=== PATIENT | female | born 1970 | race Caucasian/White ===

== ENCOUNTER 2022-09-19 09:17 | Emergency (ER) | payer OTHER, SELFPAY ==
[2022-09-19 09:20] VITALS: BP 179/86; PULSE 78; RESP 16; TEMP 37; O2SAT 100
[2022-09-19] MEDS: OXYMETAZOLINE HCL 0.05% NAS 15 ML BTL (*BKC) 2 SPRAY NASAL (09:53)
--- NOTE | 2022-09-19 09:55 | ED.GENADULT ---
HPI - General Adult General Chief complaint: Epistaxis Stated complaint: NOSEBLEED Time Seen by Provider: 09/19/22 09:39 History of Present Illness HPI narrative: Kesha Peoples is a 52 y/o female who presents with reports of having a nose bleed on Sunday that she was able to stop. It returned yesterday but she got it under control and then she got up today and it started to bleed again and could not get it to stop. She denies having these issues before. She is not on any blood thinners but reports she takes a lot of Excedrin. Bleeding is controlled with the pressure being held, let go to evaluate and pt is noted to have recurrent left nare bleeding. Related Data Allergies Allergy/AdvReac Type Severity Reaction Status Date / Time codeine AdvReac Severe NAUSEA Verified 09/19/22 09:50 Review of Systems Review of Systems: CONSTITUTIONAL: Denies fever, chills, or sweats. EYES: Denies visual changes, redness, or discharge. ENT: Denies rhinorrhea, congestion, sore throat, or otalgia- complains of nose bleed from left nostril that has been off and on since 3 days CARDIOVASCULAR: Denies chest pain, palpitations, or edema. RESPIRATORY: Denies cough or dyspnea. GASTROINTESTINAL: Denies abdominal pain, nausea, vomiting, or diarrhea. GENITOURINARY: Denies dysuria or hematuria. SKIN: Denies rash or itching. MUSCULOSKELETAL: Denies back pain, joint pain, or myalgia. NEUROLOGIC: Denies headache, numbness, dizziness, or weakness. PSYCHIATRIC: Denies anxiety or depression. PMFSH Family History Family History Other Diabetes mellitus Family history of arthritis Family history of malignant neoplasm Hypertension Social History Social History Alcohol intake: current Exam Narrative: GENERAL: Well-appearing, well-nourished, and in no acute distress. HEAD: Normocephalic, atraumatic. EYES: PERRLA and EOMI. ENT: epistaxis to the left nostril, Mucous membranes moist. Oropharynx without tonsillar hypertrophy exudate or other lesions. NECK: Supple. No adenopathy or masses. No carotid bruits or JVD CHEST: Clear to auscultation. No respiratory distress. No wheezes rales or rhonchi HEART: Regular rate and rhythm. No murmur heard. Normal peripheral pulses. ABDOMEN: Soft, nontender, nondistended, normal active bowel sounds. EXTREMITIES: Normal range of motion. No edema. SKIN: Warm, dry, no rash. NEURO: No focal deficits. Alert and oriented x3. PSYCH: Normal mood and affect. Course Vital Signs Vital signs: Vital Signs Temperature 37.0 C 09/19/22 09:20 Pulse Rate 78 09/19/22 09:20 Respiratory Rate 16 09/19/22 09:20 Blood Pressure 179/86 H 09/19/22 09:20 Pulse Oximetry 100 09/19/22 09:20 Temperature 37.0 C 09/19/22 09:20 Pulse Rate 78 09/19/22 09:20 Respiratory Rate 16 09/19/22 11:57 Blood Pressure 128/77 09/19/22 11:57 Pulse Oximetry 98 09/19/22 11:57 vitals reviewed by me. Medical Decision Making MDM Narrative Medical decision making narrative: Bleeding stopped with pressure in room, immediately rebleeds when tissue and pressure is lifted off of nose. Afrin nose spray in both nostrils placed and pressure being held Bleeding has stopped plan to check CBC/ BMP/ Pt INR and observe her for a while longer to make sure bleeding does not restart. Discussed this plan with patient and she is agreeable. After Afrin pt has not had any more bleeding for 2 hours. Plan to d/c home with the use of Afrin the next 3 days with follow up with her PCP and ENT Dr. Corrales Differential Diagnosis Differential Diagnosis: concern for: Anemia/ Uncontrolled Epistaxis /coagulopathy issue/ Vital Signs Vital Signs: Vital Signs Temperature 37.0 C 09/19/22 09:20 Pulse Rate 78 09/19/22 09:20 Respiratory Rate 16 09/19/22 09:20 Blood Pressure 179/86 H 09/19/22 09:20 Pulse O
[2022-09-19 10:30] LABS: Basophils Absolute Auto 0.1 K/mm3 (0.0-0.1); Basophils Percent Auto 0.8 % (0.2-1.2); Eosinophils Absolute Auto 0.3 K/mm3 (0-0.3); Eosinophils Percent Auto 5.3 % (0-4.4); Hematocrit 41.4 % (37.0-47.0); Hemoglobin 13.7 g/dL (12.0-15.0); Immature Granulocyte Absolute 0.02 K/mm3 (0.00-0.031); Immature Granulocyte Percent A 0.3 % (0-0.5); Immature Platelet Fraction Pct 1.8 % (0.9-11.2); Lymphocytes Absolute Auto 2.54 K/mm3 (0.9-3.2); Lymphocytes Percent Auto 39.6 % (18.3-44.2); Mean Corpuscular HGB Conc 33.1 g/dl (32-36); Mean Corpuscular Hemoglobin 32.2 pg (26-34); Mean Corpuscular Volume 97.2 fl (80-100); Mean Platelet Volume 9.1 fl (7.4-10.4); Monocytes Absolute Auto 0.5 K/mm3 (0.1-0.6); Monocytes Percent Auto 7.9 % (2.6-8.5); Neutrophils Percent Auto 46.1 % (45.5-73.1); Platelet Count Result 314 k/mm3 (150-375); Red Blood Count 4.26 M/mm3 (4.2-5.4); Red Cell Distribution Width 13.8 % (11.5-14.5); White Blood Count 6.4 K/mm3 (4.5-10.0)
[2022-09-19 10:38] LABS: Anion Gap 6 mmol/L (8-16); Blood Urea Nitrogen 21 mg/dL (7-17); Carbon Dioxide 24 mmol/L (22-30); Chloride 109 mmol/L (98-107); Estimated CRCL calculation 120 ml/min; Estimated Glomerular Filt Rate > 60; Glucose 131 mg/dL (65-110); Potassium 4.6 mmol/L (3.4-5.0); Sodium 139 mmol/L (137-145)
[2022-09-19 10:42] LABS: Prothrombin Time 13.4 Seconds (11.1-14.7)
[2022-09-19 11:57] VITALS: BP 128/77; RESP 16; O2SAT 98
--- NOTE | 2022-09-19 12:00 | PC.NURSE ---
Resting on cart. No bleeding from nose.
== END 2022-09-19 12:49 | disposition home or self-care (01) ==
PROVIDERS: Emergency Provider Nurse Practitioner Family; PCP Nurse Practitioner Family
DX: R04.0 Epistaxis (principal)
CPT/HCPCS: 36415; 80048; 85025; 85055; 85610; 99283; A9270

== ENCOUNTER 2023-05-14 11:40 | Outpatient (CLI) | payer OTHER, SELFPAY ==
--- NOTE | ~2023-05-14 | XR_ITS ---
EXAMINATION: XR lumbar spine 6V w bending DATE: 05/14/2023 12:48 INDICATION: Low back pain TECHNIQUE: Anteroposterior, lateral in neutral, flexion and extension, and bilateral oblique views of the lumbar spine, and cone-down lateral view of the lumbosacral junction were obtained. COMPARISON: None. FINDINGS: There are changes of anterior and posterior fusion at L4-5. Bone alignment is normal. There is no fracture. No hypermobility is present with flexion or extension. Vertebral body heights are ma intained. There is moderate loss of intervertebral disc space height at L2-3, L3-4 and L5-S1. There i s multilevel moderate facet joint osteoarthritis. 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 IMPRESSION: 1. Surgical changes and moderate lumbar spondylosis without acute findings. Reviewed, dictated and finalized at location L. ER COMMENTATOR
== END 2023-05-14 11:41 ==
PROVIDERS: PCP Nurse Practitioner Family; Visit Provider Chiropractor
DX: M54.50 Low back pain, unspecified (principal)
CPT/HCPCS: 72114